=== PATIENT | male | born 1955 | race Asian ===

== ENCOUNTER 2023-04-03 13:14 | Emergency (ER) | payer MEDICARE ==
[~2023-04-03] VITALS: Ht 170.2 cm; Wt 82.0 kg
[2023-04-03 13:19] VITALS: O2SAT 97
[2023-04-03 15:11] VITALS: BP 142/78; PULSE 67; RESP 18; TEMP 97.8
== END 2023-04-03 15:12 | disposition home or self-care (01) ==
LOC: ER 13:14
DX: R51.9 Headache, unspecified (principal)
CPT/HCPCS: 99284